=== PATIENT | male | born 1975 | race Caucasian/White ===

== ENCOUNTER → 2017-05-20 | Outpatient (CLI) | payer OTHER ==
[~2017-05-20] MED LIST: ACIDOPHILUS1 EAC2 PO; Amlodipine-Ben1 EACH PO; Augmentin 875-1 EACH PO; Cleocin HCl300 MG PO; HYDR1TAB94 PO; Metoprolol Tar100 MG PO; NEBI5 PO; PROB500 PO; ROXICODONE5 MG PO
== END | disposition home or self-care (01) ==
LOC: LAB 17:00 → LAB SHORT 17:00
DX: M10.072 Idiopathic gout, left ankle and foot (principal)
CPT/HCPCS: 88305; 89060

== ENCOUNTER 2018-04-09 16:02 | Emergency (ER) | payer OTHER ==
[~2018-04-09] VITALS: Ht 175.3 cm; Wt 93.0 kg
[~2018-04-09 16:02] MED LIST changes: -ACIDOPHILUS1 EAC2 PO
[2018-04-09] MEDS ORDERED: Augmentin 500-1 EACH PO (17:23)
[2018-04-09] MEDS ORDERED: Norco 5-325 Ta1 EACH PO (17:24)
[2018-04-16] MEDS ORDERED: Lotrel 5-40 MG1 EACH (15:44)
[2018-04-16] MEDS ORDERED: Bactrim 400-801 EACH (15:45)
== END 2018-04-09 17:35 | disposition home or self-care (01) ==
LOC: ER 16:02
DX: L02.611 Cutaneous abscess of right foot (principal); Z88.1 Allergy status to other antibiotic agents; Z79.899 Other long term (current) drug therapy; I10 Essential (primary) hypertension; F17.200 Nicotine dependence, unspecified, uncomplicated
CPT/HCPCS: 10160; 87070; 87075; 87077; 87147; 87186; 87205; 99283-25

== ENCOUNTER 2018-04-17 09:04 | Day surgery (SDC) | payer OTHER ==
[~2018-04-17] VITALS: Ht 175.3 cm; Wt 91.0 kg
[~2018-04-17 09:04] MED LIST changes: +Augmentin 500-1 EACH PO; +Bactrim 400-801 EACH; +Lotrel 5-40 MG1 EACH; +Norco 5-325 Ta1 EACH PO
--- NOTE | 2018-04-17 15:14 | NUR ---
DISCHARGE TEACHING PROVIDED VERBATIM, USING HIGHLIGHTED HANDOUT MATERIALS AND EMPHASIZING ASPECTS RELATIVE TO MOBILITY AND RISK AVERSION FOR BLEEDING OR INFECTION. QUESTIONS ASKED AND ANSWERED. SIGNED ACKNOWLEDGEMENTS OBTAINED.
--- NOTE | 2018-04-17 16:31 | NUR ---
PT DRESSED, IV DC'D TIP INTACT, PT DC'D BY WC BY THIS RN WITH DRIVING PT HOME
== END 2018-04-17 15:30 | disposition home or self-care (01) ==
LOC: MHTC 09:04
DX: I73.9 Peripheral vascular disease, unspecified (principal)
CPT/HCPCS: 36140; 37225; 75625; 75716; 75774; 76937; 85347; 99152; 99153; C1714; C1760; C1769; C1884; C1887; C1894; C2623; J1644; J2250; J3010; J7030; J7040; Q9967

== ENCOUNTER → 2018-04-21 | Outpatient (CLI) | payer OTHER ==
[~2018-04-21] MED LIST changes: +**INCOMPLETE MED REC; +ACET325 PO; +ACIDOPHILUS1 EAC2 PO; +DOXY100 PO; +FURO40 PO; +Hair, Skin & N1 EACH PO; +K-Dur10 MEQ PO; +LEVOFLOXACIN250 MG PO; +LOSA25 PO; +Nicoderm Cq1 EAC1 TD; +OXYC5 PO; +POTCHL10ER PO
== END | disposition home or self-care (01) ==
LOC: PLD 12:17 → LAB SHORT 12:17
DX: M10.071 Idiopathic gout, right ankle and foot (principal); L97.412 Non-pressure chronic ulcer of right heel and midfoot with fat layer exposed
CPT/HCPCS: 88305; 89060

== ENCOUNTER 2018-05-22 17:03 | Inpatient (IN) | payer OTHER ==
[~2018-05-22] VITALS: Ht 177.8 cm; Wt 87.8 kg
[~2018-05-22 17:03] MED LIST changes: -**INCOMPLETE MED REC; -ACET325 PO; -ACIDOPHILUS1 EAC2 PO; -DOXY100 PO; -FURO40 PO; -Hair, Skin & N1 EACH PO; -K-Dur10 MEQ PO; -LEVOFLOXACIN250 MG PO; -LOSA25 PO; -Nicoderm Cq1 EAC1 TD; -OXYC5 PO; -POTCHL10ER PO
[2018-05-22] MEDS ORDERED: LEVOFLOXACIN250 MG PO (17:36)
[2018-05-22 18:48] LABS: BASOPHILS ABSOLUTE AUTO 0.04 K/mm3 (0.00-0.23); BASOPHILS PERCENT AUTO 0 % (0-2); EOSINOPHILS ABSOLUTE AUTO 0.09 K/mm3 (0.00-0.68); EOSINOPHILS PERCENT AUTO 1 % (0-6); Hematocrit 53.9 % (37.0-53.0); Hemoglobin 18.1 g/dL (13.5-17.5); IMMATURE GRAN ABSOLUTE AUTO 0.06 K/mm3 (0.00-0.10); IMMATURE GRAN PERCENT AUTO 1 % (0-1); LYMPHOCYTES ABSOLUTE AUTO 1.89 K/mm3 (0.84-5.20); LYMPHOCYTES PERCENT AUTO 16 % (21-46); MONOCYTES ABSOLUTE AUTO 1.05 K/mm3 (0.16-1.47); MONOCYTES PERCENT AUTO 9 % (4-13); Mean Corpuscular HGB 35.4 pg (26.0-34.0); Mean Corpuscular HGB Conc 33.6 g/dL (31.5-36.5); Mean Corpuscular Volume 106 fL (80-100); Mean Platelet Volume 9.4 fL (9.1-12.4); NEUTROPHILS ABSOLUTE AUTO 8.88 K/mm3 (1.96-9.15); NEUTROPHILS PERCENT AUTO 74 % (41-73); Platelet Count 220 K/mm3 (150-400); RDW Coefficient Variation 12.1 % (11.7-14.2); RDW Standard Deviation 47.8 fL (35.1-46.3); Red Blood Cell Count 5.11 M/mm3 (4.30-5.90); White Blood Cell Count 12.01 K/mm3 (4.00-11.30)
[2018-05-22 19:11] LABS: Alanine Aminotransfer (ALT/SGP 64 U/L (12-78); Albumin, Blood 3.4 g/dL (3.4-5.0); Albumin/Globulin Ratio 0.7 (0.8-1.8); Alk Phos 133 U/L (50-136); Anion Gap 10 mmol/L (6-16); Aspartate Aminotrans (AST/SGOT 48 U/L (12-37); Bilirubin, Total 0.4 mg/dL (0.1-1.0); Blood Urea Nitrogen 7 mg/dL (8-24); Bun/Creatinine Ratio 13.8 (12.0-20.0); CO2, Blood 22 mmol/L (21-32); Calcium, Blood 8.7 mg/dL (8.5-10.1); Chloride, Blood 102 mmol/L (98-108); Creatinine, Blood 0.51 mg/dL (0.60-1.20); Globulin, Blood 4.7 g/dL (2.2-4.0); Glomerular Filtration Rate >60 (60-); Glucose, Blood 123 mg/dL (70-99); Potassium, Blood 3.5 mmol/L (3.5-5.5); Sodium, Blood 134 mmol/L (136-145); Total Protein, Blood 8.1 g/dL (6.4-8.2)
[2018-05-22] MEDS ORDERED: **INCOMPLETE MED REC (19:20)
[2018-05-22] MEDS ORDERED: Amlodipine-Ben1 EACH PO (19:23)
[2018-05-22] MEDS ORDERED: FURO40 PO (19:25)
[2018-05-22] MEDS ORDERED: ACIDOPHILUS1 EAC2 PO (19:26)
[2018-05-22] MEDS ORDERED: OXYC5 PO (19:27)
[2018-05-22] MEDS ORDERED: K-Dur10 MEQ PO (19:28)
[2018-05-22] MEDS ORDERED: LOSA25 PO (19:30)
[2018-05-23 04:54] LABS: International Normalized Ratio 1.05; Prothrombin Time Results 11.1 Sec (9.7-11.5)
[2018-05-23 05:02] LABS: Anion Gap 8 mmol/L (6-16); Blood Urea Nitrogen 6 mg/dL (8-24); Bun/Creatinine Ratio 10.7 (12.0-20.0); CO2, Blood 25 mmol/L (21-32); Calcium, Blood 8.4 mg/dL (8.5-10.1); Chloride, Blood 105 mmol/L (98-108); Creatinine, Blood 0.56 mg/dL (0.60-1.20); Glomerular Filtration Rate >60 (60-); Glucose, Blood 104 mg/dL (70-99); Potassium, Blood 3.8 mmol/L (3.5-5.5); Sodium, Blood 138 mmol/L (136-145)
--- NOTE | 2018-05-23 07:44 | NUR ---
SUMMARY PT ADMITTEDD DAVID. SEE ADMTI HX. PTS L FOOT WOUND WAS INITIALLY DRY THEN PT AMBULATING FOR BRP AND BEGAN BLEEDING SMALL AMNTS WHICH DRIED PT BACK TO BED.I PLACED DSNG AND MEFIX TAPE. DAY RN AGREES TO NOTIFY DR CASTELLANOS OF CX AFTER THEIR OFFICE OPENS.
--- NOTE | 2018-05-23 14:29 | NUR ---
History, Chart, Medications and Allergies reviewed before start of procedure. Lungs clear T/O to Auscultation. Patient confirms NPO status and agrees with scheduled surgery.
--- NOTE | 2018-05-23 14:30 | NUR ---
PT TO DAY SURG VIA ZHENG WITH DAY FURNACE UNLOADER. REPORT GIVEN AT BEDSIDE.
--- NOTE | 2018-05-23 15:40 | NUR ---
05/23/18 1540 Meron Singh IV IN LEFT FOREARM INFILTRATED. REMOVED IV, FULLY INTACT. WARM COMPRESS APPLIED
--- NOTE | 2018-05-23 16:57 | NUR ---
PT BACK TO ROOM FROM PACU. A&OX4. BULKY DRESSING IN PLACE C/D/I. PT DENIES PAIN AT THIS TIME. WILL CTM.
--- NOTE | 2018-05-23 19:53 | NUR ---
SHIFT SUMMARY: POD #0. HIS IS COMPLIANT WITH 75% WB ON THE LLE. DRESSING IS C/D/I. PT DENIED PAIN UNTIL SHIFT CHANGE. MEDICATED PER EMAR. A&OX4. TOLERATING PO INTAKE. USING URINAL AT BEDSIDE.
--- NOTE | 2018-05-24 04:21 | NUR ---
SHIFT SUMMARY: PT POD #1. DRESSING TO LEFT FOOT CDI. PAIN IS BEING WELL CONTROLLED WITH OXY AND TYLENOL PER EMAR. RATING PAIN 2-3/10. VOIDING AND GARRY PO INTAKE. CIWA'S MAINTAINED AT 0 T/O SHIFT. USING URINAL PRN. 75% WB ON LLE. NO CONCERNS AT THIS TIME.
[2018-05-24] MEDS ORDERED: POTCHL10ER PO (12:11)
[2018-05-24] MEDS ORDERED: ACET325 PO (12:11)
[2018-05-24] MEDS ORDERED: Nicoderm Cq1 EAC1 TD (12:12)
[2018-05-24] MEDS ORDERED: DOXY100 PO (12:12)
[2018-05-24] MEDS ORDERED: Hair, Skin & N1 EACH PO (12:12)
--- NOTE | 2018-05-24 13:55 | NUR ---
DISCHARGE PT DISCHARGED HOME FROM UNIT AT APROX 1345. PT GIVEN WRITTEN AND VERBAL DISCHARGE INSTRUCTIONS AND VERBALIZED UNDERSTANDING OF THESE INSTRUCTIONS. IV REMOVED, PT TOLERATED WELL. WHEELCHAIR TO CAR, PT SBA W/ASSISTANCE INTO VEHICLE, FOLLOWED 75% WB ON LLE.
== END 2018-05-24 13:47 | disposition home or self-care (01) | DRG 854 ==
LOC: ER 17:03 → SURS 20:03
PROVIDERS: Emergency Medicine; Nurse Practitioner Acute Care; Podiatrist; ADMIT Internal Medicine
PROC: 0Y6Y0Z0 Detachment at Left 5th Toe, Complete, Open Approach (ICD-10-PCS; principal; 2018-05-23 14:45)
DX: A41.9 Sepsis, unspecified organism (principal); M86.8X7 Other osteomyelitis, ankle and foot; F10.20 Alcohol dependence, uncomplicated; F17.210 Nicotine dependence, cigarettes, uncomplicated; I10 Essential (primary) hypertension; I73.9 Peripheral vascular disease, unspecified; M10.9 Gout, unspecified; L97.529 Non-pressure chronic ulcer of other part of left foot with unspecified severity
CPT/HCPCS: 36415; 73630; 80048; 80053; 83605; 83735; 85025; 85610; 85651; 86140; 87040; 87071; 87075; 87205; 88305; 88311; 93005; 93010; 99285-25; C9113; J0360; J1100; J2185; J2370; J2405; J3010; J3370; J7030; J7050; J7120

== ENCOUNTER → 2018-08-06 | Outpatient (CLI) | payer OTHER ==
[~2018-08-06] MED LIST changes: +**INCOMPLETE MED REC; +ACET325 PO; +ACIDOPHILUS1 EAC2 PO; +DOXY100 PO; +FURO40 PO; +Hair, Skin & N1 EACH PO; +K-Dur10 MEQ PO; +LEVOFLOXACIN250 MG PO; +LOSA25 PO; +Nicoderm Cq1 EAC1 TD; +OXYC5 PO; +POTCHL10ER PO
== END | disposition home or self-care (01) ==
LOC: LAB SHORT 15:18 → PLD 15:18
DX: L02.611 Cutaneous abscess of right foot (principal)
CPT/HCPCS: 87070; 87205

== ENCOUNTER 2019-04-13 14:44 | Emergency (ER) | payer OTHER ==
[~2019-04-13] VITALS: Ht 177.8 cm; Wt 97.5 kg
[2019-04-13 15:14] LABS: BASOPHILS ABSOLUTE AUTO 0.05 K/mm3 (0.00-0.23); BASOPHILS PERCENT AUTO 1 % (0-2); EOSINOPHILS ABSOLUTE AUTO 0.04 K/mm3 (0.00-0.68); EOSINOPHILS PERCENT AUTO 1 % (0-6); Hematocrit 45.6 % (37.0-53.0); IMMATURE GRAN ABSOLUTE AUTO 0.02 K/mm3 (0.00-0.10); IMMATURE GRAN PERCENT AUTO 0 % (0-1); LYMPHOCYTES ABSOLUTE AUTO 1.68 K/mm3 (0.84-5.20); LYMPHOCYTES PERCENT AUTO 23 % (21-46); MONOCYTES ABSOLUTE AUTO 0.79 K/mm3 (0.16-1.47); MONOCYTES PERCENT AUTO 11 % (4-13); Mean Corpuscular HGB 33.3 pg (26.0-34.0); Mean Corpuscular HGB Conc 32.9 g/dL (31.5-36.5); Mean Corpuscular Volume 101 fL (80-100); Mean Platelet Volume 9.1 fL (9.1-12.4); NEUTROPHILS ABSOLUTE AUTO 4.89 K/mm3 (1.96-9.15); NEUTROPHILS PERCENT AUTO 65 % (41-73); Platelet Count 230 K/mm3 (150-400); RDW Coefficient Variation 12.4 % (11.7-14.2); RDW Standard Deviation 46.7 fL (35.1-46.3); Red Blood Cell Count 4.51 M/mm3 (4.30-5.90); White Blood Cell Count 7.47 K/mm3 (4.00-11.30)
[2019-04-13 15:38] LABS: Alanine Aminotransfer (ALT/SGP 27 U/L (12-78); Albumin, Blood 3.2 g/dL (3.4-5.0); Albumin/Globulin Ratio 0.6 (0.8-1.8); Alk Phos 164 U/L (50-136); Anion Gap 8 mmol/L (6-16); Aspartate Aminotrans (AST/SGOT 29 U/L (12-37); Bilirubin, Total 0.3 mg/dL (0.1-1.0); Blood Urea Nitrogen 5 mg/dL (8-24); Bun/Creatinine Ratio 9.6 (12.0-20.0); CO2, Blood 27 mmol/L (21-32); Calcium, Blood 9.1 mg/dL (8.5-10.1); Chloride, Blood 101 mmol/L (98-108); Creatinine, Blood 0.52 mg/dL (0.60-1.20); Globulin, Blood 5.4 g/dL (2.2-4.0); Glomerular Filtration Rate >60 (60-); Glucose, Blood 114 mg/dL (70-99); Potassium, Blood 3.9 mmol/L (3.5-5.5); Sodium, Blood 136 mmol/L (136-145); Total Protein, Blood 8.6 g/dL (6.4-8.2)
[2019-04-13] MEDS ORDERED: Augmentin 875-1 EACH PO (18:41)
== END 2019-04-13 19:38 | disposition home or self-care (01) ==
LOC: ER 14:44
PROVIDERS: Physician Assistant
DX: L03.115 Cellulitis of right lower limb (principal); L97.519 Non-pressure chronic ulcer of other part of right foot with unspecified severity; I10 Essential (primary) hypertension; I73.9 Peripheral vascular disease, unspecified; F17.210 Nicotine dependence, cigarettes, uncomplicated; Z88.1 Allergy status to other antibiotic agents; Z88.8 Allergy status to other drugs, medicaments and biological substances; Z79.899 Other long term (current) drug therapy; Z89.412 Acquired absence of left great toe
CPT/HCPCS: 36415; 73630; 80053; 85025; 85651; 86140; 96365; 99283-25; J2543

== ENCOUNTER 2019-04-17 11:01 | Day surgery (SDC) | payer OTHER ==
[~2019-04-17] VITALS: Ht 177.8 cm; Wt 92.1 kg
== END 2019-04-17 13:49 | disposition home or self-care (01) ==
LOC: ORSCSDS 11:01
PROVIDERS: Podiatrist Foot & Ankle Surgery
PROC: 0Y6T0Z0 Detachment at Right 3rd Toe, Complete, Open Approach (ICD-10-PCS; principal; 2019-04-17 12:30)
DX: M86.171 Other acute osteomyelitis, right ankle and foot (principal); L98.499 Non-pressure chronic ulcer of skin of other sites with unspecified severity; L03.031 Cellulitis of right toe; F17.210 Nicotine dependence, cigarettes, uncomplicated
CPT/HCPCS: 87071; 87075; 87147; 87205; 88305; 88311; J0171; J0690; J2250; J2704; J3010; J7120